=== PATIENT | female | born 1965 | race Two or more races ===

== ENCOUNTER 2020-02-13 02:31 | Emergency (ER) | payer OTHER ==
[~2020-02-13] VITALS: Ht 152.4 cm; Wt 62.6 kg
[2020-02-13] MEDS ORDERED: PEPCID AC20 MG PO (12:28)
[2020-02-13] MEDS ORDERED: CELEBREX100 MG PO (12:28)
== END 2020-02-13 12:39 | disposition home or self-care (01) ==
LOC: ER 02:31
DX: K80.50 Calculus of bile duct without cholangitis or cholecystitis without obstruction (principal); K80.80 Other cholelithiasis without obstruction

== ENCOUNTER 2020-02-26 01:04 | Emergency (ER) | payer OTHER ==
[~2020-02-26] VITALS: Ht 152.4 cm; Wt 61.7 kg
[~2020-02-26 01:04] MED LIST: CELEBREX100 MG PO; PEPCID AC20 MG PO
[2020-02-26] MEDS ORDERED: ONDANSETRON ODT4 MG SL (05:10)
[2020-02-26] MEDS ORDERED: KETO10TA2 PO (05:10)
[2020-02-26] MEDS ORDERED: PEPCID AC20 MG PO (05:10)
== END 2020-02-26 05:19 | disposition home or self-care (01) ==
LOC: ER 01:04
DX: K80.80 Other cholelithiasis without obstruction (principal); R10.11 Right upper quadrant pain

== ENCOUNTER 2020-03-21 08:24 | Outpatient (CLI) | payer OTHER ==
[~2020-03-21 08:24] MED LIST changes: +KETO10TA2 PO; +ONDANSETRON ODT4 MG SL
== END 2020-03-21 08:42 | disposition home or self-care (01) ==
LOC: NUCLEAR 08:24
PROVIDERS: ATTEND Surgery
DX: K80.20 Calculus of gallbladder without cholecystitis without obstruction (principal)
CPT/HCPCS: 78227; A9537; J2805

== ENCOUNTER 2020-03-27 05:45 | Day surgery (SDC) | payer OTHER | END 2020-03-27 12:55 | disposition home or self-care (01) | LOC: CIR.AMB 05:45 | PROVIDERS: ATTEND Surgery | DX: K80.00 Calculus of gallbladder with acute cholecystitis without obstruction (principal); Z20.828 Contact with and (suspected) exposure to other viral communicable diseases ==

== ENCOUNTER 2021-09-04 09:38 | Outpatient (CLI) | payer OTHER | END 2021-09-04 09:51 | disposition home or self-care (01) | LOC: RAD 09:38 | PROVIDERS: ATTEND Podiatrist Foot Surgery | DX: M79.672 Pain in left foot (principal); M79.671 Pain in right foot ==

== ENCOUNTER 2022-02-18 13:07 | Outpatient (CLI) | payer OTHER | END 2022-02-18 13:14 | disposition home or self-care (01) | LOC: SONOGRAMA 13:07 | PROVIDERS: ATTEND Obstetrics & Gynecology | DX: R10.2 Pelvic and perineal pain (principal) ==

== ENCOUNTER 2022-03-27 11:26 | Outpatient (CLI) | payer OTHER | END 2022-03-27 11:31 | disposition home or self-care (01) | LOC: MAMO-SONO 11:26 | PROVIDERS: ATTEND Obstetrics & Gynecology | DX: Z12.31 Encounter for screening mammogram for malignant neoplasm of breast (principal); N60.11 Diffuse cystic mastopathy of right breast; N60.12 Diffuse cystic mastopathy of left breast ==

== ENCOUNTER 2023-03-18 11:42 | Emergency (ER) | payer OTHER ==
[~2023-03-18] VITALS: Ht 154.9 cm; Wt 68.0 kg
[2023-03-18] MEDS ORDERED: ATORVASTATIN CA10 MG (11:54)
== END 2023-03-18 14:14 | disposition home or self-care (01) ==
LOC: ER 11:42
DX: R06.02 Shortness of breath (principal)

== ENCOUNTER 2023-07-21 13:00 | Outpatient (CLI) | payer OTHER ==
[~2023-07-21 13:00] MED LIST changes: +ATORVASTATIN CA10 MG
== END 2023-07-21 13:13 | disposition home or self-care (01) ==
LOC: MAMO-SONO 13:00
PROVIDERS: ATTEND Obstetrics & Gynecology
DX: N60.11 Diffuse cystic mastopathy of right breast (principal); N60.12 Diffuse cystic mastopathy of left breast; Z12.31 Encounter for screening mammogram for malignant neoplasm of breast; R10.2 Pelvic and perineal pain; N95.0 Postmenopausal bleeding

== ENCOUNTER 2024-08-19 13:17 | Outpatient (CLI) | payer OTHER | END 2024-08-19 13:18 | disposition home or self-care (01) | LOC: NUCLEAR 13:17 | PROVIDERS: ATTEND Obstetrics & Gynecology | DX: M81.0 Age-related osteoporosis without current pathological fracture (principal) ==

== ENCOUNTER 2025-01-25 11:23 | Outpatient (CLI) | payer OTHER | END 2025-01-25 11:32 | disposition home or self-care (01) | LOC: MAMO-SONO 11:23 | PROVIDERS: ATTEND Obstetrics & Gynecology | DX: N60.11 Diffuse cystic mastopathy of right breast (principal); N60.12 Diffuse cystic mastopathy of left breast ==

== ENCOUNTER 2025-06-21 13:50 | Outpatient (CLI) | payer OTHER | END 2025-06-21 14:10 | disposition home or self-care (01) | LOC: RAD 13:50 | DX: M99.01 Segmental and somatic dysfunction of cervical region (principal); M25.511 Pain in right shoulder; M99.02 Segmental and somatic dysfunction of thoracic region; M99.03 Segmental and somatic dysfunction of lumbar region ==